=== PATIENT | male | born 1990 | race Caucasian/White ===

== ENCOUNTER 2018-06-14 20:43 | Emergency (ER) | payer MEDICAID ==
[~2018-06-14] VITALS: Ht 185.4 cm; Wt 132.4 kg
--- NOTE | 2018-06-14 20:56 | NUR ---
ED Nurse Note: Patient walk in c/o bleeding from hemorrhoids. Patient states he has internal and external hemorrhoids. Patient states he used the restroom today and noticed and unusual amount of bright red blood since 1800 today. per pt he was supposed to have surgery on them but never got them. per pt 5/ pain stinging sensation
[2018-06-14 20:57] VITALS: BP 162/100
[2018-06-14] MEDS ORDERED: ANUSOL-HC25 MG RECTAL (21:16)
--- NOTE | 2018-06-14 21:16 | Emergency Room Report ---
History of Present Illness General Chief Complaint: General Complaint Source: Patient Present Illness HPI Is a 27-year-old male with a history of internal and externally. He presents with chief complaint of hemorrhoid bleeding. This intermittent problem but worse today. He said he noticed a lot of blood. No pain noted some stinging sensation. No fever chills but no nausea no vomiting. No active bleeding now. Denies any other complaint. He was scheduled for surgery but because work but had to cancel it. Allergies: Coded Allergies: No Known Allergies (Unverified , 06/14/18) Patient History Past Medical History: see triage record, old chart reviewed Past Surgical History: none Pertinent Family History: none Social History: Denies: smoking Immunizations: other Reviewed Nursing Documentation: PMH: Agreed; PSxH: Agreed Nursing Documentation-PMH Past Medical History: No History, Except For Hx Gastrointestinal Problems: No - internal and external hemorrhoids Review of Systems Eye: Denies: eye pain, blurred vision ENT: Denies: ear pain, nose congestion, throat swelling Respiratory: Denies: cough, shortness of breath Cardiovascular: Denies: chest pain, palpitations Gastrointestinal: Denies: abdominal pain, diarrhea, nausea, vomiting Musculoskeletal: Denies: back pain, joint pain Skin: Denies: rash Neurological: Denies: headache, numbness Endocrine: Denies: increased thirst, increased urine Hematologic/Lymphatic: Denies: easy bruising All Other Systems: negative except mentioned in HPI Physical Exam Vital Signs Date Time Temp Pulse Resp B/P (MAP) Pulse Ox O2 Delivery O2 Flow Rate FiO2 06/14/18 20:49 98.1 93 16 162/100 97 Room Air vitals normal except for high blood pressure Sp02 EP Interpretation: reviewed, normal General Appearance: well appearing, no apparent distress, alert Head: normocephalic, atraumatic Eyes: bilateral eye PERRL, bilateral eye EOMI ENT: hearing grossly normal, normal pharynx Neck: full range of motion, supple, no meningismus Respiratory: chest non-tender, lungs clear, normal breath sounds Cardiovascular #1: regular rate, rhythm, no murmur Gastrointestinal: normal bowel sounds, non tender, no mass, no organomegaly, no bruit, non-distended Rectal: other - Small external hemorrhoid. Not thrombosed. No obvious internal hemorrhoids seen on my exam. Musculoskeletal: back normal, gait/station normal, normal range of motion Psychiatric: mood/affect normal Skin: warm/dry Medical Decision Making Diagnostic Impression: Primary Impression: Hemorrhoids Qualified Codes: K64.9 - Unspecified hemorrhoids ER Course Patient with a bleeding hemorrhoid. Most likely internal hemorrhoids since external hemorrhoid is very small. He said he had one at 6 o'clock position on the last colonoscopy. Vital stable. We'll discharge home with suppository. Last Vital Signs Date Time Temp Pulse Resp B/P (MAP) Pulse Ox O2 Delivery O2 Flow Rate FiO2 06/14/18 20:57 98.1 93 16 162/100 97 Room Air Status: unchanged Disposition: HOME, SELF-CARE Condition: Stable Scripts Hydrocortisone Acetate* (ANUSOL-HC*) 25 Mg Supp.rect 1 SUPP RECTAL TWICE A DAY, #10 SUPP Prov: Ha Molina MD 06/14/18 Additional Instructions: Follow-up with your doctor in 7 days. You will need a referral to see a surgeon again. Return if symptom worsen. Ha Molina MD Jun 14, 2018 21:16
[2018-06-14 21:21] VITALS: BP 162/100
--- NOTE | 2018-06-14 21:22 | NUR ---
ER DISCHARGE NOTE: Patient is cleared to be discharged per ERMD, pt is aox4, on room air, with stable vital signs. pt was given dc and prescription instructions, pt was able to verbalize understanding, pt id band removed.
== END 2018-06-14 21:20 | disposition home or self-care (01) ==
LOC: EMR 21:11
DX: K64.9 Unspecified hemorrhoids (principal)
CPT/HCPCS: 99282